=== PATIENT | male | born 2000 | race Caucasian/White ===

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

== ENCOUNTER → 2019-04-08 | Outpatient (CLI) | payer BC ==
[~2019-04-08] MED LIST changes: -ACETAMINOPHEN INTRAVENOUS 100 ML IV ONE; +ALBU2.5V8 INH; -CEFAZOLIN 2GM PREMIX 50 ML IV PRN; +OXYC1TAB15 PO; -PROAIR HFA8.5 GM INH
--- NOTE | 2019-04-08 11:03 | CARD ---
MR#: [id number] Date of Study: 04/08/2019 Ordering Physician: MILAD COSTA, Referring Physician: MILAD COSTA, Tech: Destinee Beck [facility] APPROVED REPORT EXAM: Two-dimensional and M-mode echocardiogram with Doppler and color Doppler. Other Information Quality : AverageHR: 68bpm Rhythm : NSRTechnically limited study due to body habitus. 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 2D DIMENSIONS RVDd2.4 (2.9-3.5cm)Left Atrium(2D)3.1 (1.6-4.0cm) IVSd0.9 (0.7-1.1cm)Aortic Root(2D)2.8 (2.0-3.7cm) LVDd4.6 (3.9-5.9cm)LVOT Diameter2.0 (1.8-2.4cm) PWd0.9 (0.7-1.1cm)LVDs3.0 (2.5-4.0cm) FS (%) 35.6 %SV63.2 ml LVEF(%)65.1 (>50%) M-Mode DIMENSIONS Left Atrium(MM)2.95 (2.5-4.0cm)Aortic Root2.69 (2.2-3.7cm) Aortic Valve AoV Peak Mingo.88.7cm/sAoV VTI20.4cm AO Peak GR.3.1mmHgLVOT Peak Mingo.82.8cm/s AO Mean GR.2mmHgAVA (VMAX)3.06cm2 LINDSEY (VTI)3.00cm2 Mitral Valve MV E Goobiwsq567.6cm/sMV DECEL JVMT658wd MV A Oamfqrlx78.3cm/sE/A Ratio1.6 Pulmonary Valve PV Peak Iyszirva780.0cm/s Tricuspid Valve TR P. Ufqwxrub832cn/sRAP BBMVHKMD0nuYb TR Peak Gr.25jbFbUDHN42ioCw LEFT VENTRICLE The left ventricle is normal size. There is normal left ventricular wall thickness. The left ventricu lar systolic function is normal and the ejection fraction is within normal range. The Ejection Fracti on is 60-65%. There is normal LV segmental wall motion. The left ventricular diastolic function and f illing is normal for age. RIGHT VENTRICLE The right ventricle is normal size. There is normal right ventricular wall thickness. The right ventr icular systolic function is normal. ATRIA The left atrium size is normal. The right atrium size is normal. The interatrial septum is intact wit h no evidence for an atrial septal defect or patent foramen ovale as noted on 2-D or Doppler imaging. AORTIC VALVE The aortic valve is grossly normal in structure and function. The aortic valve is probably trileaflet . Doppler and Color Flow revealed no significant aortic regurgitation. There is no significant aortic valvular stenosis. There is no aortic valvular vegetation. MITRAL VALVE The mitral valve is normal in structure and function. There is no evidence of mitral valve prolapse. There is no mitral valve stenosis. Doppler and Color Flow revealed no mitral valve regurgitation note d. TRICUSPID VALVE The tricuspid valve is normal in structure and function. Doppler and Color Flow revealed trace tricus pid regurgitation. The PA pressure was estimated at 14 mmHg. There is no tricuspid valve prolapse or vegetation. There is no tricuspid valve stenosis. PULMONIC VALVE The pulmonic valve is not well visualized. GREAT VESSELS The aortic root is normal in size. The ascending aorta is normal in size. The IVC was not visualized. PERICARDIAL EFFUSION There is no evidence of significant pericardial effusion. Critical Notification Critical Value: No <Conclusion> The left ventricular systolic function is normal and the ejection fraction is within normal range. Th e Ejection Fraction is 60-65%. There is normal LV segmental wall motion. The aortic valve is grossly normal in structure and function. The aortic valve is probably trileaflet . Technically difficult study Signed by : Jovany David, Electronically Approved : 04/08/2019 11:03:09
== END | disposition home or self-care (01) ==
LOC: ECHO 09:20
PROVIDERS: ATTEND Family Medicine
DX: Z82.49 Family history of ischemic heart disease and other diseases of the circulatory system (principal)
CPT/HCPCS: 93306